=== PATIENT | male | born 1995 | race Caucasian/White ===

== ENCOUNTER 2020-06-26 06:16 | Outpatient (CLI) | payer OTHER ==
--- NOTE | 2020-06-26 07:47 | RAD ---
EXAM: CHEST TWO VIEWS 06/26/2020 7:44 AM HISTORY: Preop evaluation COMPARISON: None. FINDINGS: Lungs: No acute airspace consolidation. Heart: Normal in size and contour. Pulmonary Vessels: Normal. Costophrenic Angles: Clear. Pneumothorax: None. Osseous Structures: Intact. Additional Findings: None. IMPRESSION: No significant acute intrathoracic disease.
[2020-06-26 08:36] LABS: #Basophils 0.1 10x3/uL (0.0-0.2); #Eosinphils 0.1 10x3/uL (0.0-0.5); #Monocytes 0.8 10x3/uL (0.0-1.1); %Basophils 0.5 % (0.0-2.0); %Eosinophils 0.8 % (0.0-6.0); %Lymphocytes 28.4 % (18.0-47.0); %Monocytes 8.2 % (0.0-10.0); %Neutrophils 61.8 % (40.0-75.0); Mean Corpuscular HGB CONC 32.9 G/DL (32.0-36.0); Mean Corpuscular Hemoglobin 28.6 PG (27.0-33.0); Mean Corpuscular Volume 86.9 fl (80.0-100.0); Mean Platelet Volume 12.2 fl (7.4-10.4); Platelet Count 308 10x3/uL (130-400); RBC Distribution Width 13.2 % (11.5-14.5); Red Blood Cell (RBC) Count 4.89 10x6/uL (4.40-5.80); White Blood Cell (WBC) Count 9.7 10x3/uL (4.5-11.0)
[2020-06-26 09:04] LABS: ALT (SGPT) 47 U/L (8-55); AST (SGOT) 23 U/L (5-34); Albumin 4.3 g/dL (3.5-5.0); Alkaline Phosphatase 71 U/L (40-110); Anion Gap 14 mmol/L (10-20); BUN (Urea Nitrogen) 16 mg/dL (8.9-20.6); Bilirubin, Total 0.4 mg/dL (0.2-1.2); Calc. Creatinine Clearance 0 mL/min (70-130); Carbon Dioxide 24 mmol/L (22-29); Chloride 108 mmol/L (98-107); Globulin 2.8 g/dL (2.4-3.5); Glucose 96 mg/dL (70-105); Potassium 3.9 mmol/L (3.5-5.1); Protein, Total 7.1 g/dL (6.0-8.3); Sodium 142 mmol/L (136-145)
[2020-06-26 14:43] LABS: Hemoglobin A1c 5.2 % (4.0-6.0)
[2020-06-26 22:36] LABS: SARS-CoV-2 MS2 Positive; SARS-CoV-2 N Gene Negative; SARS-CoV-2 S Gene Negative; SARS-CoV-2 by NAA Not Detected (NotDetected); SARS-CoV-2 orf1ab Negative
== END 2020-06-26 06:17 | disposition home or self-care (01) ==
LOC: LABBT 06:16
PROVIDERS: ATTEND Surgery
DX: Z01.818 Encounter for other preprocedural examination (principal); E66.01 Morbid (severe) obesity due to excess calories; Z20.828 Contact with and (suspected) exposure to other viral communicable diseases
CPT/HCPCS: 71046; 80053; 83036; 85025; 87635; U0003

== ENCOUNTER 2020-06-26 07:00 | Inpatient (IN) | payer OTHER ==
[2020-06-30 14:09] VITALS: BMI 47.5
[2020-07-01] MEDS ORDERED: Lidocaine 1% w/Epinephrine 1:100K 20 ML VIAL ONE (09:34)
[2020-07-01] MEDS ORDERED: Bupivacaine PF 0.5% 30 ML VIAL ONE (09:34)
[2020-07-01] MEDS ORDERED: Fentanyl 100 MCG/2 ML VIAL ONE (09:58)
[2020-07-01] MEDS ORDERED: SUGAMMADEX SODIUM 200 MG/2 ML VIAL ONE (09:58)
[2020-07-01] MEDS ORDERED: SUGAMMADEX SODIUM 500 MG/5 ML VIAL ONE (09:58)
[2020-07-01] MEDS ORDERED: Heparin 5,000 UNITS/ML VIAL ONE (10:00)
[2020-07-01] MEDS ORDERED: Lidocaine 2% Jelly 5 ML TUBE ONE (10:04)
[2020-07-01] MEDS ORDERED: PROPOFOL 200 MG/20 ML VIAL ONE (10:10)
[2020-07-01] MEDS ORDERED: PHENYLEPHRINE-NS 100 MCG/ML 10 ML SYRINGE ONE (10:10)
[2020-07-01] MEDS ORDERED: Rocuronium Bromide 10 MG/ML (10ML VIAL) ONE (10:10)
[2020-07-01] MEDS ORDERED: Glycopyrrolate 0.2 MG/ML 5 ML SYRINGE ONE (10:10)
[2020-07-01] MEDS ORDERED: Lidocaine 1% PF 5 ML VIAL ONE (10:10)
[2020-07-01] MEDS ORDERED: Dexamethasone 20 MG/5 ML VIAL ONE (10:10)
[2020-07-01] MEDS ORDERED: diphenhydrAMINE 50 MG/ML VIAL IVP PRN ×2 (11:28→11:45)
[2020-07-01] MEDS ORDERED: Ondansetron PF 4 MG/2 ML Vial IVP PRN ×2 (11:28→11:45)
[2020-07-01] MEDS ORDERED: Dextrose 5% in Water 1,000 ML IV PRN (11:28)
[2020-07-01] MEDS ORDERED: Hydrocodone-Acetamin 15 ML UDCUP PO PRN (11:28)
[2020-07-01] MEDS ORDERED: Promethazine HCl 25 MG/ML VIAL IM PRN ×3 (11:28→11:45)
[2020-07-01] MEDS ORDERED: Dextrose 50% Abboject 50 ML SYRINGE SLOW IVP PRN (11:28)
[2020-07-01] MEDS ORDERED: hydrALAZINE 20 MG/ML VIAL SLOW IVP PRN (11:28)
[2020-07-01] MEDS ORDERED: Ondansetron HCl/PF 4 MG/2 ML Vial IVP PRN (11:38)
[2020-07-01] MEDS ORDERED: Promethazine HCl 25 MG/ML VIAL SLOW IVP PRN (11:38)
[2020-07-01] MEDS ORDERED: Naloxone HCl 0.4 mg/ml Vial IV PRN (11:45)
[2020-07-01] MEDS ORDERED: diphenhydrAMINE 50 MG/ML VIAL IM PRN (11:45)
[2020-07-01] MEDS ORDERED: fentaNYL Citrate/PF 2,000 MCG in Sodium Chloride 0.9% 60 ML IV PRN (11:45)
[2020-07-01] MEDS ORDERED: Zolpidem Tartrate 5 MG TAB PO PRN (11:45)
[2020-07-01] MEDS ORDERED: diphenhydrAMINE 25 MG CAP PO PRN (11:45)
[2020-07-01] MEDS ORDERED: Communication Order-Pharmacy FS SCH (11:45)
--- NOTE | 2020-07-01 12:02 | OP ---
DATE OF PROCEDURE: 07/01/2020 PREOPERATIVE DIAGNOSIS: Morbid obesity with a body mass index of 48. POSTOPERATIVE DIAGNOSIS: Morbid obesity with a body mass index of 48. PROCEDURE PERFORMED: Laparoscopic sleeve gastrectomy with Ethicon staple line reinforcement and 38-[place] bougie. ANESTHESIA: General. ESTIMATED BLOOD LOSS: Minimal. COMPLICATIONS: None. SPECIMEN: Stomach. FINDINGS: Normal postoperative EGD. TECHNIQUE: The patient was taken to the operating room and laid supine on the operating room table. After general anesthetic was obtained, the arms and legs were double strapped to bariatric table. The abdomen was prepped and draped in a sterile fashion. Left subcostal 5-mm Optiview trocar placed in usual fashion. High-flow pneumoperitoneum was obtained. Left and right abdominal 12 mm ports as well as a right subcostal 5-mm port were all placed under direct visualization. A 5-mm incision was made at the xiphoid, and Rogelio was used to raise the liver off the GE junction. Short gastrics were taken down from midbody of the stomach to left reynaldo of diaphragm. Left reynaldo, posterior fundus, angle of His were completely dissected. A 38 bougie was brought in and its tip left in the antrum of the stomach. Multiple loads of [place] stapling device with Ethicon staple line reinforcements used to form the sleeve, the 1st was fired up at a distance of 6 cm proximal to the pylorus and angled up to the incisura. Multiple loads were then fired up along the bougie. Stomach was completely transected at the angle of His. Stomach was removed from the left abdominal incision. This fascial defect was closed using GraNee needle and Vicryl tie. EGD scope was passed through esophagus and stomach to the level of the duodenum without obstruction. There was no stricture at the incisura. No bleeding or air leakage through the staple line. EGD scope was used to decompress the stomach, it was pulled and removed. Rogelio retractor was removed under direct visualization without bleeding. All port sites were infiltrated using local anesthetic. All ports were removed under direct visualization. Pneumoperitoneum was let down. The Vicryl was used to close the fascial defect from the left abdominal incisions. All incisions were irrigated and closed using 4-0 Monocryl and Dermabond. The patient was en route to Recovery in stable condition. All instrument counts, needle counts, and lap counts were correct. Job ID: [id number]
[2020-07-01] MEDS ORDERED: hydrALAZINE 20 MG/ML VIAL ONE (12:27)
[2020-07-01] MEDS ORDERED: Ondansetron PF 4 MG/2 ML Vial ONE (12:31)
[2020-07-01] MEDS ORDERED: Labetalol HCl 100 MG/20 ML VIAL ONE (13:14)
[2020-07-01] MEDS: D5 1/2 NS w/20 mEq KCL 1,000 ML IV SCH ×2 (20:05)
[2020-07-01] MEDS ORDERED: Enoxaparin Sodium 40 MG/0.4 ML SYRINGE SC SCH (21:00)
[2020-07-02] MEDS: D5 1/2 NS w/20 mEq KCL 1,000 ML IV SCH ×2 (05:00→12:15)
[2020-07-02 05:47] LABS: Band 2 % (5-11); Hemoglobin 14.9 g/dL (14.0-18.0); Lymphocytes 5 % (21-51); MDiff Complete? YES; Mean Corpuscular HGB CONC 33.8 g/dL (32.0-36.0); Mean Corpuscular Hemoglobin 29.4 pg (27.0-31.0); Mean Corpuscular Volume 86.9 fL (78.0-98.0); Mean Platelet Volume 9.4 fL (7.4-10.4); Monocytes 17 % (0-10); Neutrophil 76 % (42-75); Platelet Count 321 thou/uL (130-400); Platelet Morphology Comment Appears Adequate; RBC Distribution Width 12.4 % (11.5-14.5); RBC Morphology Normal; Red Blood Cell (RBC) Count 5.08 mill/uL (4.70-6.10); White Blood Cell (WBC) Count 21.6 thou/uL (4.8-10.8)
[2020-07-02 05:53] LABS: Anion Gap 17 mmol/L (10-20); BUN (Urea Nitrogen) 9 mg/dL (8.9-20.6); Calc. Creatinine Clearance 280 mL/min (70-130); Calcium 9.4 mg/dL (7.8-10.44); Carbon Dioxide 23 mmol/L (22-29); Chloride 103 mmol/L (98-107); Glucose 134 mg/dL (70-105); Potassium 4.1 mmol/L (3.5-5.1); Sodium 139 mmol/L (136-145)
[2020-07-02] MEDS ORDERED: Hydrocodone-Acetamin 15 ML UDCUP PO PRN (07:57)
[2020-07-02 08:30] VITALS: TEMP 98.7
[2020-07-02 08:58] VITALS: BP 145/84
[2020-07-02] MEDS ORDERED: Pantoprazole 40 MG VIAL IVP SCH (09:00)
== END 2020-07-02 12:42 | disposition home or self-care (01) | DRG 621 ==
LOC: SURG B 07-01 09:04 → SURG A 07-01 16:54
PROVIDERS: ADMIT Surgery; ATTEND Surgery
PROC: 0DB64Z3 Excision of Stomach, Percutaneous Endoscopic Approach, Vertical (ICD-10-PCS; principal; 2020-07-01)
PROC: 0DJ08ZZ Inspection of Upper Intestinal Tract, Via Natural or Artificial Opening Endoscopic (ICD-10-PCS; 2020-07-01)
DX: E66.01 Morbid (severe) obesity due to excess calories (principal); Z68.42 Body mass index [BMI] 45.0-49.9, adult; Z90.89 Acquired absence of other organs
CPT/HCPCS: 36415; 80048; 85025; 88307; 88312; 93005; 93010; C9113; J0360; J0690; J1100; J1644; J1650; J2405; J2704; J3010; J3480; S0020